=== PATIENT | female | born 1990 | race Caucasian/White ===

== ENCOUNTER 2022-09-14 18:14 | Emergency (ER) | payer OTHER ==
[2022-09-14] MEDS ORDERED: Penicillin V Potassium 250 MG TAB ONE (19:04)
== END 2022-09-14 19:30 | disposition home or self-care (01) ==
LOC: NAV ERS 18:14
DX: K04.4 Acute apical periodontitis of pulpal origin (principal)
CPT/HCPCS: 99282

== ENCOUNTER 2022-09-18 18:34 | Emergency (ER) | payer OTHER ==
[2022-09-18] MEDS ORDERED: Acetaminophen 500 MG TAB ONE (18:56)
== END 2022-09-18 19:05 | disposition home or self-care (01) ==
LOC: NAV ERS 18:34
DX: H92.01 Otalgia, right ear (principal)
CPT/HCPCS: 99282